=== PATIENT | female | born 1955 | race Two or more races ===

== ENCOUNTER → 2020-12-28 14:41 | Outpatient (CLI) | payer OTHER | END | disposition home or self-care (01) | LOC: NUCLEAR 14:00 | PROVIDERS: ATTEND General Practice | DX: M81.0 Age-related osteoporosis without current pathological fracture (principal); Z13.820 Encounter for screening for osteoporosis ==

== ENCOUNTER 2021-01-17 12:56 | Outpatient (CLI) | payer OTHER | END 2021-01-17 13:03 | disposition home or self-care (01) | LOC: RAD 12:56 | PROVIDERS: ATTEND Chiropractor | DX: M06.4 Inflammatory polyarthropathy (principal); M54.5 Low back pain | CPT/HCPCS: 73218 ==

== ENCOUNTER → 2021-02-02 10:08 | Outpatient (CLI) | payer OTHER | END | disposition home or self-care (01) | LOC: MRI 10:08 | PROVIDERS: ATTEND Chiropractor | DX: M54.2 Cervicalgia (principal); M54.12 Radiculopathy, cervical region | CPT/HCPCS: 72141 ==

== ENCOUNTER 2021-05-09 14:08 | Outpatient (CLI) | payer OTHER | END 2021-05-09 14:20 | disposition home or self-care (01) | LOC: MAMO-SONO 14:08 → EDBD 14:08 → MAMO-SONO 14:20 | PROVIDERS: ATTEND Obstetrics & Gynecology | DX: R10.2 Pelvic and perineal pain (principal); Z12.31 Encounter for screening mammogram for malignant neoplasm of breast; N64.89 Other specified disorders of breast ==

== ENCOUNTER 2021-10-10 07:07 | Outpatient (CLI) | payer OTHER | END 2021-10-10 07:14 | disposition home or self-care (01) | LOC: SONOGRAMA 07:07 | PROVIDERS: ATTEND General Practice | DX: N18.9 Chronic kidney disease, unspecified (principal) ==

== ENCOUNTER 2021-11-14 10:09 | Outpatient (CLI) | payer OTHER | END 2021-11-14 10:17 | disposition home or self-care (01) | LOC: RAD 10:09 | PROVIDERS: ATTEND Ophthalmology | DX: Z98.41 Cataract extraction status, right eye (principal); H25.011 Cortical age-related cataract, right eye ==

== ENCOUNTER 2021-11-22 09:32 | Outpatient (CLI) | payer OTHER | END 2021-11-22 10:38 | disposition home or self-care (01) | LOC: EKG 09:32 | PROVIDERS: ATTEND Ophthalmology | DX: Z98.41 Cataract extraction status, right eye (principal); I10 Essential (primary) hypertension; H25.013 Cortical age-related cataract, bilateral ==

== ENCOUNTER 2022-04-24 10:13 | Outpatient (CLI) | payer OTHER | END 2022-04-24 10:30 | disposition home or self-care (01) | LOC: RAD 10:13 | PROVIDERS: ATTEND General Practice | DX: M06.4 Inflammatory polyarthropathy (principal) ==

== ENCOUNTER 2022-04-27 07:28 | Outpatient (CLI) | payer OTHER | END 2022-04-27 07:32 | disposition home or self-care (01) | LOC: NUCLEAR 07:28 | PROVIDERS: ATTEND General Practice | DX: I73.9 Peripheral vascular disease, unspecified (principal) ==

== ENCOUNTER 2022-05-01 09:21 | Outpatient (CLI) | payer OTHER | END 2022-05-01 09:25 | disposition home or self-care (01) | LOC: NUCLEAR 09:21 | PROVIDERS: ATTEND General Practice | DX: I73.9 Peripheral vascular disease, unspecified (principal) ==

== ENCOUNTER 2022-08-23 10:04 | Outpatient (CLI) | payer OTHER | END 2022-08-23 10:47 | disposition home or self-care (01) | LOC: RAD 10:04 | PROVIDERS: ATTEND General Practice | DX: M06.4 Inflammatory polyarthropathy (principal); M25.562 Pain in left knee ==

== ENCOUNTER 2022-11-13 08:41 | Outpatient (CLI) | payer OTHER | END 2022-11-13 08:50 | disposition home or self-care (01) | LOC: RAD 08:41 | PROVIDERS: ATTEND General Practice | DX: M06.4 Inflammatory polyarthropathy (principal) ==

== ENCOUNTER 2022-11-13 12:11 | Outpatient (CLI) | payer OTHER | END 2022-11-13 12:19 | disposition home or self-care (01) | LOC: SONOGRAMA 12:11 | PROVIDERS: ATTEND General Practice | DX: Z12.31 Encounter for screening mammogram for malignant neoplasm of breast (principal); N64.4 Mastodynia ==

== ENCOUNTER 2022-12-11 12:04 | Outpatient (CLI) | payer OTHER | END 2022-12-11 12:09 | disposition home or self-care (01) | LOC: SONOGRAMA 12:04 | PROVIDERS: ATTEND Physical Medicine & Rehabilitation Pediatric Rehabilitation Medicine | DX: M15.0 Primary generalized (osteo)arthritis (principal); S83.281A Other tear of lateral meniscus, current injury, right knee, initial encounter; S83.282A Other tear of lateral meniscus, current injury, left knee, initial encounter ==

== ENCOUNTER 2022-12-25 07:35 | Outpatient (CLI) | payer OTHER | END 2022-12-25 07:42 | disposition home or self-care (01) | LOC: MRI 07:35 | DX: C53.8 Malignant neoplasm of overlapping sites of cervix uteri (principal) | CPT/HCPCS: 72197; Q9965; 72196 ==

== ENCOUNTER 2022-12-29 15:18 | Outpatient (CLI) | payer OTHER | END 2022-12-29 15:23 | disposition home or self-care (01) | LOC: RAD 15:18 | DX: Z01.810 Encounter for preprocedural cardiovascular examination (principal) ==

== ENCOUNTER 2023-01-01 08:00 | Outpatient (CLI) | payer OTHER | END 2023-01-01 08:01 | disposition home or self-care (01) | LOC: NUCLEAR 08:00 | DX: C53.8 Malignant neoplasm of overlapping sites of cervix uteri (principal); M81.0 Age-related osteoporosis without current pathological fracture | CPT/HCPCS: 77080; 78815; A9552 ==

== ENCOUNTER 2023-06-29 19:53 | Emergency (ER) | payer OTHER ==
[~2023-06-29] VITALS: Ht 157.5 cm; Wt 65.8 kg
[2023-06-29] MEDS ORDERED: COZAAR25 MG (20:43)
[2023-06-29] MEDS ORDERED: GLUMETZA500 MG PO (20:44)
[2023-06-29] MEDS ORDERED: NORVASC5 MG PO (20:45)
[2023-06-29] MEDS ORDERED: DICLOFENAC POTA50 MG PO (21:46)
[2023-06-29] MEDS ORDERED: ZANAFLEX2 M1 PO (21:46)
== END 2023-06-29 21:54 | disposition home or self-care (01) ==
LOC: ER 19:53
DX: M54.2 Cervicalgia (principal); M54.9 Dorsalgia, unspecified; I10 Essential (primary) hypertension; Z85.42 Personal history of malignant neoplasm of other parts of uterus
CPT/HCPCS: 72040; 96372; 99284; J1885; J2360

== ENCOUNTER 2024-03-25 07:56 | Outpatient (CLI) | payer OTHER ==
[~2024-03-25 07:56] MED LIST: COZAAR25 MG; DICLOFENAC POTA50 MG PO; GLUMETZA500 MG PO; NORVASC5 MG PO; ZANAFLEX2 M1 PO
== END 2024-03-25 08:07 | disposition home or self-care (01) ==
LOC: SONOGRAMA 07:56
PROVIDERS: ATTEND General Practice
DX: M06.4 Inflammatory polyarthropathy (principal); M25.519 Pain in unspecified shoulder; S09.90XA Unspecified injury of head, initial encounter; M54.2 Cervicalgia; M79.641 Pain in right hand; M25.539 Pain in unspecified wrist
CPT/HCPCS: 70553; 72141; 73223; 76881; Q9965; 72156; 73222

== ENCOUNTER 2024-09-15 09:18 | Outpatient (CLI) | payer OTHER | END 2024-09-15 13:29 | disposition home or self-care (01) | LOC: MRI 09:18 | PROVIDERS: ATTEND General Practice | DX: M06.4 Inflammatory polyarthropathy (principal); M25.569 Pain in unspecified knee | CPT/HCPCS: 73721 ==

== ENCOUNTER 2024-09-16 11:06 | Outpatient (CLI) | payer OTHER | END 2024-09-16 11:08 | disposition home or self-care (01) | LOC: NUCLEAR 11:06 | PROVIDERS: ATTEND General Practice | DX: I73.9 Peripheral vascular disease, unspecified (principal); I87.9 Disorder of vein, unspecified; I87.2 Venous insufficiency (chronic) (peripheral) ==

== ENCOUNTER 2024-09-22 07:45 | Outpatient (CLI) | payer OTHER | END 2024-09-22 07:46 | disposition home or self-care (01) | LOC: NUCLEAR 07:45 | PROVIDERS: ATTEND General Practice | DX: I73.9 Peripheral vascular disease, unspecified (principal); I87.9 Disorder of vein, unspecified ==

== ENCOUNTER 2025-04-20 10:45 | Outpatient (CLI) | payer OTHER | END 2025-04-20 10:50 | disposition home or self-care (01) | LOC: MAMO-SONO 10:45 | PROVIDERS: ATTEND General Practice | DX: N64.4 Mastodynia (principal); Z12.31 Encounter for screening mammogram for malignant neoplasm of breast ==